=== PATIENT | female | born 1965 | race Caucasian/White ===

== ENCOUNTER 2020-12-02 08:24 | Outpatient (CLI) | payer OTHER ==
[2020-12-02] MEDS ORDERED: MIDAZOLAM 1 MG/ML, 5ML ONE (09:20)
[2020-12-02] MEDS ORDERED: FENTANYL PF 100 MCG/2ML ONE (09:20)
[2020-12-02] MEDS ORDERED: ONDANSETRON 2MG/ML, 2ML ONE (10:09)
== END 2020-12-02 23:59 | disposition home or self-care (01) ==
LOC: RAD 08:24
PROVIDERS: ATTEND Student in an Organized Health Care Education/Training Program
DX: M25.562 Pain in left knee (principal); S83.242A Other tear of medial meniscus, current injury, left knee, initial encounter; W18.39XA Other fall on same level, initial encounter; Y93.89 Activity, other specified; Y92.89 Other specified places as the place of occurrence of the external cause; Y99.8 Other external cause status
CPT/HCPCS: 73721; 99156; 99157; J2250; J2405; J3010